=== PATIENT | male | born 1960 | race Caucasian/White ===

== ENCOUNTER → 2016-12-30 | Outpatient (CLI) | payer OTHER ==
[~2016-12-30] VITALS: Ht 172.7 cm; Wt 79.8 kg
[~2016-12-30] MED LIST: ANDROGEL; ANDROGEL75 GM; CELEBREX 200 M200 MG PO; COZAAR 50 MG TA50 M1 PO; DEPO-TESTO100 MG/1 M; FENOFIBRATE160 MG PO; HYDROCHLOROTHIA25 M1 PO; HYDROCODONE-AP1 EAC6 PO; IBUPROFEN 200200 M1 PO; LIPITOR 20 MG T20 M1 PO; LIPITOR10 MG PO; LIPITOR20 MG; LISINOPRIL-HCT1 EACH PO; LOSARTAN POTASS50 MG PO; LOVASTAT40 PO; MOBIC15 MG PO; NABUMETONE 750750 M1 PO; NORCO 5-325 TA1 EACH PO; OXYCODONE-ACET1 EACH PO; PROTONIX40 M2 PO; RELAFEN750 MG PO; TYLENOL EX-STR500 M2 PO; WELLBUTRIN SR150 MG PO; ZANTAC 150MG T150 M1 PO
--- NOTE | ~2016-12-30 | HPC ---
[address] [address] PAIN MANAGEMENT CONSULTATION Name: MAEJUDI VEGA Room #: REG [facility].#: [id number] Admission: 12/30/16 Attend Phys: Harrison Garcia DO Discharge: Date of : 58 Report #: [id number] THIS REPORT FOR: //name// CC: Bruce Garcia The patient is very pleasant 56-year-old gentleman well known to pain clinic, typically treated for lumbar radiculopathy, left L5 radicular pattern. The patient has done well with occasional left L5-S1 transforaminal epidural injections. Last injection was July, prior had an injection in June and February of 2016. He returns to pain clinic today noting that the last injection afforded 100% relief for 2-3 months, pain has gradually begun to recur, he rates it up to a 7 on a VAS currently and again low back, left leg, posterior lateral aspect, going down to the foot with some exacerbation of pain with lifting, coughing or sneezing. PHYSICAL EXAMINATION: Shows a pleasant 56-year-old gentleman, BMI is 26.8 kilograms per meter squared. Vital signs are generally stable. Rises from chair using armrest, modestly antalgic gait, positive straight leg raise on the left. Reviewed MRI findings from 2013, notes L5-S1 to have disk bulging with facet hypertrophy, correlating with left L5 radicular pattern. ASSESSMENT: Symptomatic lumbar radiculopathy. RECOMMENDATIONS: Left L5-S1 transforaminal epidural injection today, follow up simply as needed. PROCEDURE: Transforaminal lumbar epidural injection under fluoroscopy, level is L5-S1 on the left. PROCEDURE NOTE: After both written and informed consent was obtained including risk of spinal cord damage, infection, increased pain and paralysis, the patient agreed to proceed. The patient was taken to the fluoroscopy suite, placed in a prone position with appropriate abdominal bolstering. After sterile prep with ChloraPrep and sterile drape, a skin wheal with 1% Xylocaine was raised. A 22 gauge 4-1/2 inch epidural Tuohy needle was inserted. From an oblique approach into the posterior-superior aspect of the left L5-S1 neural foramen with continuous pressure on the glass syringe plunger for loss of resistance. Glass syringe was filled with 2 cc of 0.1 Xylocaine. The glass loss of resistance syringe was removed. A low volume extension tubing was connected, negative aspiration was accomplished for cerebrospinal fluid or blood. 1 mL of Omnipaque was injected which showed spread both within the epidural space and laterally along the nerve root. This was followed with 80 mg of triamcinolone plus [address] [address] PAIN MANAGEMENT CONSULTATION Name: JUDI WALL Room #: REG [facility]#: [id number] Admission: 12/30/16 Attend Phys: Harrison Garcia DO Discharge: Date of : 58 Report #: [id number] of 1.5% preservative-free Xylocaine. Needle was partially withdrawn, 0.5 mL of Xylocaine was injected to clear the needle and the needle was removed. The area was cleansed, band-aid was applied. The patient was allowed to ambulate to the recovery room, discharged in good and stable condition. <ELECTRONICALLY SIGNED> By: Harrison Garcia DO 01/03/17 0746 1544 1653 Harrison Garcia DO /nt
[2016-12-30 13:00] VITALS: BP 144/85
== END | disposition home or self-care (01) ==
LOC: PAIN 07:20
DX: M54.16 Radiculopathy, lumbar region (principal)

== ENCOUNTER → 2017-07-04 | Outpatient (CLI) | payer OTHER ==
[~2017-07-04] VITALS: Ht 175.3 cm; Wt 81.4 kg
[~2017-07-04] MED LIST changes: +APAP650 PO
--- NOTE | ~2017-07-04 | HPC ---
[facility] [place] [address] PAIN MANAGEMENT CONSULTATION Name: JUDI WALL Room #: REG [facility].#: [id number] Admission: 07/04/17 Attend Phys: Harrison Garcia DO Discharge: Date of : 58 Report #: [id number] THIS REPORT FOR: //name// CC: Bruce Garcia DATE OF SERVICE: 07/04/2017 The patient is a very pleasant 57-year-old gentleman long treated for symptomatic lumbar radiculopathy, typically has left radicular pain, well treated with transforaminal epidural injection. Returns to pain clinic today with somewhat different complaint. He notes that he started to have recurrence of his classic left lumbar radicular pain; however, recently has developed pain in the right low back that is somewhat different. It stays in the right low back, does not radiate into the leg. He describes pain that he rates a 7 on VAS. Pain is exacerbated with standing, walking and bending. He is starting to get some of his recurrent left radicular pain as well. PHYSICAL EXAMINATION: Shows 57-year-old gentleman, BMI is 26.5 kilograms per meter squared. Blood pressure is 155/89, pulse 70, respirations are 15. Subjective pain score is 7 on VAS. He has not fallen in the last 3 months. He rises from chair using armrest. Gait is modestly antalgic, tender over the right SI with a grossly positive Erik test on the right and positive Gaenslen's test on this side. Slightly positive straight leg raise on the left with some classic L5 radicular pain distribution pattern. DIAGNOSTIC STUDIES: Somewhat dated, MRI is now nearly 5 years old from 07/2012. Did note left posterior annular tear at L5-S1. ASSESSMENT: 1. Sacroiliac joint dysfunction by clinical exam and history (right side). 2. Lumbar radiculopathy by clinical exam and history, classically left L5, symptoms recurring. While the patient does get good relief with epidural injections, typically near 80%-100% relief for several months, I would like to get another look at the MRI. If we can get more definitive intervention, i.e., surgical decompression, I think it would be better than continue to expose the patient to lumbar epidural injections. We will seek authorization for an MRI of the lumbar spine due to the classic L5 radicular pain pattern as well as x-ray of the pelvis to evaluate the right sacroiliac pain. Given classic right sacroiliac mediated pain with positive Erik test, positive Gaenslen's and positive pelvic distraction all pointing to pain in the right sacroiliac joint, we will seek authorization for right sacroiliac joint injection under fluoroscopy. The patient continues with physical therapy, works out every other day. I have restarted him on Celebrex ([id number] NSAIDs have afforded only nominal [address] [address] PAIN MANAGEMENT CONSULTATION Name: JUDI WALL Room #: REG [facility]#: [id number] Admission: 07/04/17 Attend Phys: Harrison Garcia DO Discharge: Date of : 58 Report #: [id number] relief). We will see the patient back for a right SI joint injection under fluoroscopy. We will review diagnostic studies at that time. Ordered MRI of the lumbar spine and x-rays of the pelvis with special attention to the right SI area. <ELECTRONICALLY SIGNED> By: Harrison Garcia DO 07/06/17 1417 1640 1944 Harrison Garcia DO /nt
[2017-07-04 13:53] VITALS: BP 155/89
== END ==
LOC: PAIN 06-02 13:13
DX: M54.16 Radiculopathy, lumbar region (principal)

== ENCOUNTER → 2017-07-22 | Outpatient (CLI) | payer OTHER ==
[~2017-07-22] VITALS: Ht 175.3 cm; Wt 81.3 kg
--- NOTE | ~2017-07-22 | HPC ---
[address] [address] PAIN MANAGEMENT CONSULTATION Name: MAE,JUDI MARTINEZWAYNE Room #: REG [facility]#: [id number] Admission: 07/22/17 Attend Phys: Harrison Garcia DO Discharge: Date of : 58 Report #: [id number] THIS REPORT FOR: //name// CC: Bruce Garcia The patient is a very pleasant 57-year-old gentleman, prior seen in the pain clinic 07/04/2017, typically treated for lumbar radiculopathy. He was diagnosed with right SI mediated pain. At last visit, we sought authorization for right SI joint injection under fluoroscopy. PROCEDURE NOTE: Right SI joint injection under fluoroscopy. PROCEDURE: After written informed consent was obtained, the patient was taken to fluoroscopy suite, placed in prone position. After sterile prep and drape, skin was raised. A 22-gauge stylet needle was placed to contact the inferior aspect of the right SI joint. Negative aspiration was accomplished. A 1 mL of Omnipaque injected, which showed spread within the joint. This was followed with 40 mg of triamcinolone plus 1 mL of 0.5% preservative-free bupivacaine. Needle was removed. The area was cleansed and Band-Aids applied. The patient monitored for an appropriate period of time, discharged in good and stable condition. <ELECTRONICALLY SIGNED> By: Harrison Garcia DO 07/25/17 0747 1234 1734 Harrison Garcia DO /berta
[2017-07-22 11:21] VITALS: BP 151/90
== END ==
LOC: PAIN 07-18 11:20
DX: M53.3 Sacrococcygeal disorders, not elsewhere classified (principal)

== ENCOUNTER → 2017-08-18 | Outpatient (CLI) | payer OTHER ==
[~2017-08-18] VITALS: Ht 175.3 cm; Wt 81.2 kg
--- NOTE | ~2017-08-18 | HPC ---
[facility] [place] [address] PAIN MANAGEMENT CONSULTATION Name: JUDI WALL [id number] Admission: 08/18/17 Attend Phys: Harrison Garcia DO Discharge: Date of : 58 Report #: [id number] THIS REPORT FOR: //name// CC: Bruce Garcia DATE OF SERVICE: 08/18/2017 The patient is a very pleasant 57-year-old gentleman typically treated for lumbar radiculopathy, left L5 radicular pain pattern. At last visit, however, he is having more right-sided low back pain. I did a right SI joint injection 07/22/2017 with about 50% improvement in pain; however, he has specific pain, it is a little higher. PHYSICAL EXAM: VSS as noted on EMR. Rises from the chair using armrests, gait is tandem. Has pain at the level of the iliac crest, right greater than left, but present on both sides of the posterior midline, exacerbated with bending forward, lifting and twisting. Lower extremities are symmetric in strength, no SLR noted at this time. Does not have any radicular symptoms at this time. He has failed physical therapy. Symptoms have been present for greater than 6 weeks. He is taking Celebrex daily. DIAGNOSTIC STUDIES: Include MRI of the lumbar spine from 08/15/2017. Notes grade 1 anterolisthesis at L4-L5 with moderate facet arthropathy L5-S1, notes mild facet arthropathy as well. ASSESSMENT: Symptomatic lumbar spondylosis without myelopathy, symptomatic lumbosacral spondylosis without myelopathy, history of right sacroiliac mediated pain. RECOMMENDATION: We will seek authorization for right-sided L4-L5 and L5-S1 facet joint injections under fluoroscopy at next visit. <ELECTRONICALLY SIGNED> By: Harrison Garcia DO 08/22/17 0714 1601 1620 Harrison Garcia DO /nt
[2017-08-18 13:56] VITALS: BP 143/85
== END ==
LOC: PAIN 07:09
DX: M47.26 Other spondylosis with radiculopathy, lumbar region (principal)

== ENCOUNTER → 2017-09-15 | Outpatient (CLI) | payer OTHER ==
[~2017-09-15] VITALS: Ht 172.7 cm; Wt 79.4 kg
--- NOTE | ~2017-09-15 | HPC ---
[facility] [address] PAIN MANAGEMENT CONSULTATION Name: JUDI WALL Room #: REG [facility]#: [id number] Admission: 09/15/17 Attend Phys: Harrison Garcia DO Discharge: Date of : 58 Report #: [id number] THIS REPORT FOR: //name// CC: Bruce Garcia The patient is a very pleasant 57-year-old gentleman long known to the pain clinic, typically treated for lumbar radiculopathy. Last couple of visits, he has been having more axial back pain. We did a right SI joint injection with some improvement of pain, but pain was primarily located in the lumbar spine area. Classic lumbar spondylosis without myelopathy. Pain at the level of the iliac crest and little above. On physical exam today, it appears in the L3-L4 and L4-L5 area on the right. We had brought patient back today with authorization to do two-level right facet joint injection under fluoroscopy. Pain continues to be problematic with flexion, rotating and side bending. ASSESSMENT: Symptomatic lumbar spondylosis without myelopathy. PROCEDURE: Right L3-L4 and L4-L5 facet joint injection under fluoroscopy. PROCEDURE NOTE: After written informed consent was obtained, the patient was taken to the fluoroscopy suite and placed in the prone position. Area of maximal tenderness was palpated and identified as the L4-L5 facet. The patient was more tender above than below this, so we elected to proceed with L3-L4 and L4-L5 facet joint injection under fluoroscopy. After written informed consent was obtained, the area was cleansed and prepped with chlorprep. A sterile drape was applied. Skin area was cleansed and prepped with Betadine, skin wheal with Xylocaine was raised. Two 22-gauge stylet needles were placed to contact the inferior aspect of the right L3-L4 and right L4-L5 facet joints. Negative aspiration was accomplished. 0.5 mL of Omnipaque was injected, which showed spread within the joint. This was followed with 20 mg of triamcinolone plus 1 mL of 0.5% preservative-free bupivacaine injected into and around the joint. Both needles were removed. The area was cleansed and Band-Aids were applied. The patient was allowed to ambulate to the recovery room and monitored for an appropriate period of time. He had very good incremental relief, pain was a 7 on VAS on admission and down to a 3 on VAS on discharge. The patient was told to continue to monitor hourly incremental pain relief. If he gets ongoing long-term relief with a steroid injection, we will simply repeat this as needed. If, however, he gets good relief of the local but no relief with the steroid, we will plan on moving forward with medial branch dorsal rami diagnostic blocks at L2, L3 and L4 on that right side in consideration of radiofrequency neurolysis of the same. [address] [address] PAIN MANAGEMENT CONSULTATION Name: JUDI WALL Room #: REG [facility]#: [id number] Admission: 09/15/17 Attend Phys: Harrison Garcia DO Discharge: Date of : 58 Report #: [id number] Fluoroscopy time was under 20 seconds. Followup in 1 week to evaluate efficacy. <ELECTRONICALLY SIGNED> By: Harrison Garcia DO 09/17/17 0954 1536 0237 Harrison Garcia DO /nt
[2017-09-15 14:46] VITALS: BP 153/87
== END | disposition home or self-care (01) ==
LOC: PAIN 07:09
DX: M47.816 Spondylosis without myelopathy or radiculopathy, lumbar region (principal); Z98.890 Other specified postprocedural states

== ENCOUNTER → 2017-11-10 | Outpatient (CLI) | payer OTHER ==
[~2017-11-10] VITALS: Ht 172.7 cm; Wt 78.5 kg
--- NOTE | ~2017-11-10 | HPC ---
[facility] [place] [address] PAIN MANAGEMENT CONSULTATION Name: JUDI WALL Room #: REG [facility].#: [id number] Admission: 11/10/17 Attend Phys: Harrison Garcia DO Discharge: Date of : 58 Report #: [id number] THIS REPORT FOR: //name// CC: Bruce Garcia The patient is a very pleasant 57-year-old gentleman well known to pain clinic, being treated for lumbar radiculopathy, component of SI mediated pain. Last seen in the pain clinic, 09/22/2017. Had a little different pain prior, I had done a right L3-L4 and L5-S1 facet joint injection 09/15/2017, returned to the pain clinic the last visit, noting axial back pain is significantly improved. Prior SI injection back in December 2016 had helped. Typically, however, he has had left L5 radicular pain, has done well with occasional left L5-S1 transforaminal epidural injections, last L5-S1 transforaminal epidural injection was nearly a year ago in December 2016. He had a prior injection 08/05/2016 and 03/04/2016. The patient returns to pain clinic today noting pain is in the left buttock, leg to the foot. Little pain with plantar flexion. Pain is burning, aching, rates it 7 on a VAS. Exacerbated with sitting, driving, coughing and lifting. Physical exam shows 57-year-old gentleman, BMI is 26.3 kilograms per meter squared. Vital signs stable as noted on EMR. Rises from chair using armrest. Gait is generally tandem, but he has a positive straight leg raise on the left. Decreased plantar flexion and decreased Achilles reflex. ASSESSMENT: 1. Symptomatic lumbar radiculopathy by clinical exam and history. 2. Left L5-S1 pattern. RECOMMENDATIONS: We will seek authorization for left L5-S1 transforaminal epidural injection at next visit. <ELECTRONICALLY SIGNED> By: Harrison Garcia DO 11/14/17 0710 1537 15 Harrison Garcia DO /nt
[2017-11-10 13:44] VITALS: BP 138/72
== END ==
LOC: PAIN 06:58
DX: M54.16 Radiculopathy, lumbar region (principal)

== ENCOUNTER → 2018-06-07 | Outpatient (CLI) | payer OTHER ==
[~2018-06-07] VITALS: Ht 172.7 cm; Wt 80.4 kg
--- NOTE | ~2018-06-07 | HPC ---
[facility] [address] [place] [address] PAIN MANAGEMENT CONSULTATION Name: MAEJUDI VEGA Room #: REG [facility].#: [id number] Admission: 06/07/18 Attend Phys: Bruce Garcia DO Discharge: Date of : 58 Report #: [id number] THIS REPORT FOR: //name// CC: Bruce Mares DATE OF SERVICE: 06/07/2018 CHIEF COMPLAINT: Low back pain, bilateral lower extremity pain, left greater than right. HISTORY OF PRESENT ILLNESS: As you know, the patient is a 58-year-old male with longstanding history of lumbar radiculopathy. He also suffers from facet arthropathy of lumbar spine, being treated both with epidural injections and facet injection therapy. He returns today in followup visit indicating that his pain is now bilateral in nature. It is not just involving the low back and left lower extremity, is now involving low back and bilateral lower extremities. He denies new injury or new trauma. He is placing pain score at 7/10, states pain is sharp, aching, burning, constant in sensation; exacerbated with sitting, driving, coughing, lifting; improves with injections. He returns today in followup visit to address bilateral lower extremity pain. Prior to this onset of symptoms, the patient was receiving transforaminal epidural injections, but given the bilateral nature, he is concerned that things may have changed in his back. He denies specific injury or trauma. ALLERGIES: No known drug allergies. CURRENT MEDICATIONS: Celecoxib 200 mg once a day, fenofibrate 160 mg once a day, lisinopril/hydrochlorothiazide 03/10.5 one tab p.o. q.a.m. SOCIAL HISTORY: The patient denies tobacco use. Denies IV or illicit drug use. He is working, not receiving workmen's compensation. He is unaccompanied today. IMAGING: There is no new imaging available. PHYSICAL EXAMINATION: VITAL SIGNS: Blood pressure 130/72, pulse is 54, respiratory rate 16 and unlabored. The patient is 98% on room air. Height 5 feet 8 inches tall, weight 177.2 pounds, BMI calculated 26.9. GENERAL: Well-developed, well-nourished, well-hydrated, 58-year-old male. He appears his stated age. He is placing current pain score at 7/10. HEENT: Normocephalic, atraumatic. Pupils equal, round, reactive to light. Extraocular muscles are intact. Sclerae nonicteric without injection. NEUROLOGIC: Cranial nerves 2 through 12 grossly intact. Speech fluent. [address] [address] PAIN MANAGEMENT CONSULTATION Name: JUDI WALL Room #: REG [facility]#: [id number] Admission: 06/07/18 Attend Phys: Brcue Garcia DO Discharge: Date of : 58 Report #: [id number] EXTREMITIES: Show no clubbing, no cyanosis, no edema. MUSCULOSKELETAL: There is some palpatory tenderness noted over the paraspinal musculature, lower lumbar spine, no spinous process tenderness. Seated straight leg raising negative. Supine straight leg raising positive on the left. Erik's test negative. Modified Gaenslen's is positive for axial low back pain. Ankle clonus negative. Babinski is negative. Muscle bulk and tone symmetrical in comparing left lower extremity to right. ASSESSMENT: 1. Symptomatic lumbar radiculopathy. 2. Spinal stenosis of the lumbar spine. 3. Displacement of lumbar intervertebral disk with radiculopathy. 4. Lumbosacral spondylosis with radiculopathy. 5. Neural foraminal stenosis of the lumbar spine (bilateral in nature). 6. Chronic intractable pain. PLAN: 1. The patient returns today in followup visit now reporting bilateral lower extremity symptoms likely related to the spinal stenosis at the L4-L5 level. He has undergone a successful treatment of left lower extremity pain at undergoing left transforaminal epidural injections at the L5-S1 level. Unfortunately, the patient is now experiencing bilateral symptoms that are radicular in its presentation. We discussed with the patient treatment options for bilateral low back pain, bilateral lower extremity pain. The following was discussed with the patient today. We discussed physical therapy, stretching exercise, core strengthening and a concerted effort at weight loss. We discussed medication management adding neuropathic pain medications and a consistent nonsteroidal anti-inflammatory. We discussed lumbar epidural injections under fluoroscopic guidance to address bilateral symptomology. We also discussed spinal cord stimulator therapy and surgical options. After reviewing the risks and benefits of all proposed treatment options, the patient chose to undergo epidural injection under fluoroscopic guidance. The patient was advised that third constitution party payer restrictions require the authorization be obtained before the patient could undergo this epidural injection. We will obtain a preauthorization for an L5-S1 interlaminar epidural steroid injection to address bilateral lower extremity symptoms. I did advise the patient this will take anywhere from 4-7 working days. We will begin this process immediately and contact the patient once it has been completed. 2. No medication changes made at today's visit. The patient will continue current medical therapy as previously prescribed. 3. We will see the patient back in followup visit once we have achieved authorization for the patient to undergo lumbar epidural injection under [address] [address] PAIN MANAGEMENT CONSULTATION Name: MAEJUDI CHRIS Room #: REG [facility]#: [id number] Admission: 06/07/18 Attend Phys: Bruce Garcia DO Discharge: Date of : 58 Report #: [id number] fluoroscopic guidance to address bilateral lower extremity pain and paresthesias. By: [id number] Bruce Garcia DO /nt
[2018-06-07 10:22] VITALS: BP 130/72
--- NOTE | 2018-06-07 10:33 | NUR ---
Pain Clinic Assessment: 1. History of Osteoarthritis: NO History of Rheumatoid Arthritis: NO 2. Height: 5 ft. 8 in. 172.7 cm. Weight: 177.2 lb. oz. 80.377 kg. Patient's BMI: 26.9 3. Vital Signs: BP: 130/72 Pulse: 54 Resp: 16 Temp: 02 Sat: 98 ECG Mon: 4. Pain Intensity: 7 5. Fall Risk: Dizziness: N Needs help standing or walking: N Fallen in the last 3 months: N Fall risk comments: 6. Patient on Blood Thinner: None 7. History of Hypertension: Y 8. Opioid Therapy greater than 6 weeks: N Opiate Contract Signed: 9. Risk Assessment Tool Provided: LOW-0 10. Functional Assessment Tool: 49/70 11. Recreational Drug Use: Never Drug Type: Tobacco Use: Never Smoker Tobacco Type: Amount or Packs/day: How Many Years: Alcohol Use: No Frequency: Quant:
== END ==
LOC: PAIN 06:56
DX: M47.27 Other spondylosis with radiculopathy, lumbosacral region (principal); M48.062 Spinal stenosis, lumbar region with neurogenic claudication; G89.4 Chronic pain syndrome; M51.16 Intervertebral disc disorders with radiculopathy, lumbar region; Z79.899 Other long term (current) drug therapy

== ENCOUNTER → 2018-06-20 | Outpatient (CLI) | payer OTHER ==
[~2018-06-20] VITALS: Ht 172.7 cm; Wt 80.5 kg
--- NOTE | ~2018-06-20 | CRIT ---
[facility] [place] [address] CRITICAL CARE NOTE Name: JUDI WALL Room #: REG [facility]#: [id number] Admission: 06/20/18 Attend Phys: Bruce Garcia DO Discharge: Date of : 58 Report #: [id number] THIS REPORT FOR: //name// CC: Bruce Turner DO DATE OF SERVICE: 06/20/2018 REFERRING PHYSICIAN: Ruben Moise D.O. and Bruce Del Cid D.O. CHIEF COMPLAINT: Low back pain and bilateral lower extremity pain, left greater than right. HISTORY OF PRESENT ILLNESS: As you know, the patient is a 58-year-old male with longstanding history of lumbar radiculopathy. He returns today in followup visit having received precertification to undergo a lumbar epidural injection under fluoroscopic guidance to address lumbar radicular symptoms involving bilateral lower extremities, left greater than right. The patient denies injury, trauma or any changes in medical history since our last visit. He returns to undergo lumbar epidural injection under fluoroscopic guidance. ALLERGIES: No known drug allergies. CURRENT MEDICATIONS: Celecoxib, fenofibrate, lisinopril and hydrochlorothiazide. SOCIAL HISTORY: The patient denies tobacco, IV or illicit drug use. He is unaccompanied today. IMAGING DATA: No new imaging available. PHYSICAL EXAMINATION: VITAL SIGNS: Blood pressure 137/77, pulse 60 and respiratory rate 16 and unlabored. The patient is 100% on room air. Height 5 feet 8 inches tall, weight 177.4 pounds and BMI calculated 27.0. GENERAL: Well-developed, well-nourished, well-hydrated 58-year-old male appearing stated age, placing current pain score 6/10. HEENT: Normocephalic and atraumatic. Pupils equal, round and reactive to light. EXTREMITIES: Show no clubbing, no cyanosis and no edema. MUSCULOSKELETAL: Lower extremity strength appears equal and symmetrical 5/5. He is intact to light touch from L1 through S2 dermatomes. Seated straight leg raising negative. Supine straight leg raising positive on the left. Erik's test negative. [facility] [address] [place] [address] CRITICAL CARE NOTE Name: MAEJUDI Room #: REG [facility]#: [id number] Admission: 06/20/18 Attend Phys: Bruce Garcia DO Discharge: Date of : 58 Report #: [id number] ASSESSMENT: 1. Symptomatic lumbar radiculopathy. 2. Spinal stenosis of the lumbar spine. 3. Displacement of lumbar intervertebral disk with radiculopathy. 4. Lumbosacral spondylosis with radiculopathy. 5. Neural foraminal stenosis of the lumbar spine. 6. Chronic intractable pain. PLAN: 1. The patient returns today in followup visit having received precertification to undergo a lumbar epidural injection under fluoroscopic guidance. Received precertification the other day from the patient's third democrat payer for him to undergo the epidural injection proposed today. He is placing pain score today 6/10. He has been advised risks and benefits of the procedure and states understood and wished to proceed. 2. No medication changes made at today's visit. The patient will continue current medical therapy as previously prescribed. 3. We will see the patient back in followup visit on an as needed basis for possible next in the series of lumbar epidural injections. PROCEDURE NOTE DESCRIPTION OF PROCEDURE: L5-S1 left paramedian epidural steroid injection under fluoroscopic guidance. After obtaining written consent, the patient was taken back to fluoroscopy suite, placed in prone position with pillow under abdomen to decrease lumbar lordosis. Skin overlying lumbosacral area then prepped and draped in aseptic fashion. The L5-S1 vertebral interspace identified by AP fluoroscopy. Skin and subcutaneous tissue overlying target site of injection anesthetized with 3 mL of 1% lidocaine. A 20-gauge 3-1/2 inch Tuohy needle advanced under fluoroscopic guidance towards the epidural space using a left paramedian approach. Epidural space identified using loss of resistance to air technique. After negative aspiration for heme or cerebrospinal fluid, 1 mL of Omnipaque injected. A lumbar epidurogram confirmed using both AP and lateral fluoroscopy. After negative aspiration for heme or cerebrospinal fluid, 5 mL of a solution containing 2 mL 40 mg per mL, 80 mg total triamcinolone, 3 mL lidocaine 1% injected slowly. Needle retracted mcc, flushed with 1 mL of 1% lidocaine and removed. Sterile bandage placed over injection site. No new motor deficits present in the lower extremities following procedure. The patient tolerated procedure well, carefully escorted to recovery room in [address] [address] CRITICAL CARE NOTE Name: JUDI WALL Room #: [facility]#: [id number] Admission: 06/20/18 Attend Phys: Bruce Garcia DO Discharge: Date of : 58 Report #: [id number] stable condition. No apparent complications. After meeting discharge criteria, the patient discharged home. By: [id number] Bruce Garcia DO /nt
[2018-06-20 09:14] VITALS: BP 137/77
--- NOTE | 2018-06-20 09:26 | NUR ---
Pain Clinic Assessment: 1. History of Osteoarthritis: NO History of Rheumatoid Arthritis: NO 2. Height: 5 ft. 8 in. 172.7 cm. Weight: 177.4 lb. oz. 80.468 kg. Patient's BMI: 27.0 3. Vital Signs: BP: 137/77 Pulse: 60 Resp: 16 Temp: 02 Sat: 100 ECG Mon: 4. Pain Intensity: 6 5. Fall Risk: Dizziness: N Needs help standing or walking: N Fallen in the last 3 months: N Fall risk comments: 6. Patient on Blood Thinner: None 7. History of Hypertension: Y 8. Opioid Therapy greater than 6 weeks: N Opiate Contract Signed: 9. Risk Assessment Tool Provided: LOW-0 10. Functional Assessment Tool: 49/70 11. Recreational Drug Use: Never Drug Type: Tobacco Use: Never Smoker Tobacco Type: Amount or Packs/day: How Many Years: Alcohol Use: No Frequency: Quant:
== END | disposition home or self-care (01) ==
LOC: PAIN 06-13 07:00
DX: M51.16 Intervertebral disc disorders with radiculopathy, lumbar region (principal); M48.061 Spinal stenosis, lumbar region without neurogenic claudication; M47.27 Other spondylosis with radiculopathy, lumbosacral region; G89.29 Other chronic pain; Z79.899 Other long term (current) drug therapy